=== PATIENT | female | born 1950 | race Two or more races ===

== ENCOUNTER 2023-02-11 02:06 | Emergency (ER) | payer SELFPAY ==
[~2023-02-11] VITALS: Ht 165.1 cm; Wt 65.0 kg
[2023-02-11 02:07] VITALS: TEMP 98.4
[2023-02-11] MEDS ORDERED: LOSA-381 PO (02:11)
[2023-02-11 02:44] LABS: BASOPHILS % (AUTO) 0.9 % (0.0-2.0); EOSINOPHILS % (AUTO) 1.5 % (1.0-6.0); HEMATOCRIT 36.2 % (36-46); LYMPHOCYTES # (AUTO) 2.2 K/uL (1.0-4.8); LYMPHOCYTES % (AUTO) 32.5 % (22.0-44.0); MEAN CORPUSCULAR HEMOGLOBIN 32.2 pg (26.0-34.0); MEAN CORPUSCULAR HGB CONC 33.2 G/dL (31.0-37.0); MEAN CORPUSCULAR VOLUME 97 fL (80-100); MONOCYTES # (AUTO) 0.8 K/uL (0.1-1.0); MONOCYTES % (AUTO) 12.3 % (2.0-9.0); NEUTROPHILS # (AUTO) 3.5 K/uL (1.8-7.7); NEUTROPHILS % (AUTO) 52.8 % (40.0-70.0); PLATELET COUNT (AUTO) 202 K/uL (150-450); RED BLOOD CELL COUNT(AUTO) 3.72 MIL/uL (4.00-5.20); RED CELL DISTRIBUTION WIDTH 14.7 % (11.5-14.5)
[2023-02-11 03:06] LABS: CALCIUM, TOTAL 9.4 mg/dL (8.8-10.5); CREATININE 1.04 mg/dL (0.60-1.30); POTASSIUM 4.1 mmol/L (3.5-5.1)
[2023-02-11] MEDS ORDERED: ASPIRIN 325 MG TABLET PO ONE (03:15)
[2023-02-11 03:16] LABS: ALBUMIN 3.6 g/dL (3.4-5.0); BILIRUBIN,TOTAL 0.3 mg/dL (0.1-1.0); TOTAL PROTEIN, SERUM 6.7 g/dL (6.4-8.2)
[2023-02-11] MEDS ORDERED: SODIUM CHLORIDE 0.9% 1,000 ML IV ONE (03:30)
[2023-02-11 03:33] LABS: PROTHROMBIN TIME 10.4 SEC (9.4-11.6)
[2023-02-11 04:17] VITALS: BP 128/72; PULSE 67; RESP 17
== END 2023-02-11 05:19 | disposition home or self-care (01) ==
LOC: EMS 02:08
DX: R07.89 Other chest pain (principal); Z79.899 Other long term (current) drug therapy
CPT/HCPCS: 99285; 96360; 71045; 96361; 80053; 82550; 83880; 84484; 85025; 85610; 85730; 36415; 93005; J7030